=== PATIENT | female | born 1965 | race Caucasian/White ===

== ENCOUNTER 2018-01-11 19:17 | Emergency (ER) | payer SELFPAY ==
[2018-01-11 19:21] VITALS: BP 129/92; PULSE 96; RESP 18; TEMP 37.3; O2SAT 96; BMI 23.7
[2018-01-11 19:42] LABS: Bacteria 0 SEEN /hpf (None Seen); Red Blood Cells-Urine 0 SEEN /hpf (0-5); Squamous Epithelial Cells - UA 0 SEEN /hpf (5-10)
[2018-01-11 19:56] LABS: Color, Urine Yellow (Yellow); Glucose, Dipstick Normal (Normal); Ketone-Dipstick Negative (Negative); Leukocyte Esterase-Dipstick 100 /ul (Negative); Nitrite-Dipstick Negative (Negative); Occult Blood-Urine Negative /ul (Negative); Protein-Dipstick Negative (Negative); Urine Bilirubin Dipstick Negative (Negative); Urine Clarity Sl. Cloudy (Clear); Urine Urobilinogen Normal (Normal)
[2018-01-11 20:09] LABS: Mucous, Urine 2+ /hpf (<or=2+)
[2018-01-11 20:10] LABS: White Blood Cells 0-5 SEEN /hpf (0-5)
[2018-01-11 20:11] LABS: Transitional Epithelial - Ur 0-5 SEEN /hpf (0-5)
--- NOTE | 2018-01-11 20:40 | RAD_ITS ---
STUDY: X-RAY - ACUTE ABDOMINAL SERIES REASON FOR EXAM: Female, 52 years old. Constipation x5-6 days TECHNIQUE: Single view of the chest. Supine, and erect view(s) of the abdomen were obtained. COMPARISON: None. FINDINGS: The lungs are clear and expanded. Normal size heart. Normal mediastinum and stephen. Normal visualized pulmonary arteries. Normal visualized aortic arch and descending thoracic aorta. There is a moderate amount of colonic stool, with formed stool seen in the descending colon and rectosigmoid. The soft tissue structures of the abdomen and pelvis are unremarkable. Normal visualized osseous structures. RAD/Acute Abdomen Inc Chest IMPRESSION: Moderate amount of colonic stool consistent with constipation. Electronically Signed: Faizan Franco MD at 21:01 EDT , Service support ,
--- NOTE | 2018-01-11 22:06 | ED.DCSUM_ITS ---
- ER Visit Summary Date of Service: 01/11/18 Chief Complaint: Dysuria, constipation History of Present Illness: The patient is a 52 F ends to the emergency department multiple complaints. Patient states that 2 weeks ago, she was seen in urgent care. She was diagnosed with new onset herpes genitalis and trichomonas. She was placed on antivirals and Flagyl. She states she completed the course. She was still having some difficulty with urination and some burning pain. She went to urgent care again and was found to have white blood cells in her urine. She was placed on Bactrim. She states that her symptoms really have not improved. She began to have increasing constipation. She also noticed bumps around her right vaginal area. She denies any vaginal discharge. She denies any bleeding. She denies any history of Crohn's disease or ulcerative colitis. Physical Examination: Vital signs reviewed General: Well-nourished, well-developed Head: Normocephalic, atraumatic Eyes: Pupils equal and reactive, extraocular muscles intact Neck, supple, no lymphadenopathy Heart: Regular rate and rhythm Respiratory: No distress, clear bilaterally Abdomen: Soft, nontender, nondistended, no peritoneal signs Back: Nontender Extremities: Nontender, no edema, no cords Skin: Normal color no rash Neuro: Alert and oriented, no focal or lateralizing deficits Test Results: [] Emergency Department Course and Treatment: I did obtain plain films. The patient does have evidence of constipation. She is a benign abdomen. Pelvic exam was done with nurse in the room. The patient does have what feel like reactive lymph nodes around the right labia. There is no focal abscess. Her urine shows persistent inflammation but no definitive infection. Culture was added. At this time, I am going to treat the patient with doxycycline given her reactive lymphadenopathy. I will also add Cipro given her persistent dysuria. The patient is going to need outpatient [employer] follow-up. I am going to refer her to Dr. Korey Russ is a patient does not have a current [employer]. The patient will be discharged home. I did summer camp counselor her on concerning symptoms and reasons to return. Treatment Plan: [] Disposition: Discharge Impression: 3 dysuria 2. Constipation This note was generated with [employer] software. It may contain incorrect words, spelling, and punctuation that were not noted in review of the chart prior to signing ED Disposition - Plan for ED Patient: Chief Complaint: Complaint Instructions: ED Urethritis Infec Vs Inflam Fem Prescriptions: Ciprofloxacin [Cipro] 500 mg PO BID #14 tab Doxycycline Monohydrate 100 mg PO BID #20 cap Referrals: Emelyn Rooney MD [STAFF PHYSICIAN] -
[2018-01-11 22:31] VITALS: PULSE 88; RESP 16; O2SAT 99
[2018-01-11] MEDS: Magnesium Citrate 300 ML PO (22:31)
== END 2018-01-11 22:32 | disposition home or self-care (01) ==
PROVIDERS: Emergency Provider Emergency Medicine
DX: R30.0 Dysuria (principal); K59.00 Constipation, unspecified; R35.0 Frequency of micturition; N90.89 Other specified noninflammatory disorders of vulva and perineum; Z86.19 Personal history of other infectious and parasitic diseases
CPT/HCPCS: 74022; 81001; 99282

== ENCOUNTER → 2018-04-15 08:00 | Outpatient (CLI) | payer SELFPAY | PROVIDERS: Visit Provider Obstetrics & Gynecology | DX: N39.0 Urinary tract infection, site not specified (principal) | CPT/HCPCS: 87086; 87088 ==

== ENCOUNTER → 2019-05-16 | Outpatient (CLI) | payer SELFPAY ==
[2019-05-23 10:29] LABS: HPV APTIMA, High Risk Negative (Negative)
== END | disposition home or self-care (01) ==
LOC: LABSPEC 05-17 10:57
PROVIDERS: Visit Provider Obstetrics & Gynecology
DX: Z12.4 Encounter for screening for malignant neoplasm of cervix (principal)
CPT/HCPCS: 87624; 88175; G0145

== ENCOUNTER → 2019-11-28 | Outpatient (CLI) | payer SELFPAY | END | disposition home or self-care (01) | LOC: LABSPEC 15:59 | PROVIDERS: Visit Provider Advanced Practice Midwife | DX: N39.0 Urinary tract infection, site not specified (principal) | CPT/HCPCS: 87086 ==

== ENCOUNTER → 2020-04-27 | Outpatient (CLI) | payer SELFPAY | END | disposition home or self-care (01) | LOC: LABSPEC 13:45 | PROVIDERS: Visit Provider Obstetrics & Gynecology | DX: Z12.4 Encounter for screening for malignant neoplasm of cervix (principal) | CPT/HCPCS: 88175; G0145 ==

== ENCOUNTER → 2022-05-06 | Outpatient (CLI) | payer OTHER, SELFPAY ==
[2022-05-09 07:44] LABS: HPV APTIMA, High Risk Negative (Negative)
== END | disposition home or self-care (01) ==
LOC: LABSPEC 11:41
PROVIDERS: Visit Provider Obstetrics & Gynecology
DX: Z12.4 Encounter for screening for malignant neoplasm of cervix (principal)
CPT/HCPCS: 87624; 88175; G0145